=== PATIENT | male | born 1950 | race Caucasian/White ===

== ENCOUNTER → 2016-06-17 | Outpatient (CLI) | payer OTHER ==
[~2016-06-17] MED LIST: ACET500T67 PO; ASCO-297 PO; ASPI-730 PO; CHOL10003 PO; GLUC100015 PO; LISI-14 PO; MULT-806 PO
--- NOTE | 2016-06-17 10:28 | DI ---
Indication: ITS.REASON: M25.511 PAIN IN RT SHOULDER PROCEDURE: SHOULDER RIGHT 3 VIEWS: Encounter: Initial Comparison: May 30, 2014 Findings: There is no acute fracture, dislocation or malalignment identified. Stable mild degenerative change in the AC joint. Glenohumeral joint space is maintained and unchanged. Impression: No acute osseous abnormality. .
--- NOTE | 2016-06-17 10:29 | DI ---
Indication: ITS.REASON: M54.2 CERVICALGIA PROCEDURE: CERVICAL SPINE 4 OR 5 VIEWS: Encounter: Initial Comparison: None Findings: Alignment of the cervical spine is stable with loss of the normal lordosis. Cervicothoracic junction is intact. Mild disk space narrowing at C3-C4 with moderate to severe disk height loss at C5-C6 and C6-C7. Oblique views show mild bilateral bony neural foraminal narrowing at C6-C7. Impression: Degenerative disk disease as above. .
== END ==
LOC: IMA 09:46
PROVIDERS: ATTEND Family Medicine
DX: M50.31 Other cervical disc degeneration, high cervical region (principal); M53.82 Other specified dorsopathies, cervical region; M25.511 Pain in right shoulder